=== PATIENT | female | born 1950 | race Two or more races ===

== ENCOUNTER 2025-07-20 10:47 | Emergency (ER) | payer OTHER ==
[~2025-07-20] VITALS: Ht 154.9 cm; Wt 77.1 kg
[2025-07-20 11:26] VITALS: BP 153/79; O2SAT 95
[2025-07-20] MEDS ORDERED: METFORMIN HCL500 M3 (11:29)
[2025-07-20] MEDS ORDERED: HYZAAR 100-12.1 EACH PO (11:30)
[2025-07-20] MEDS ORDERED: DEXAMETHASONE 4 MG TABLET PO ONE (13:15)
[2025-07-20] MEDS ORDERED: ORPHENADRINE CITRATE 30 MG/ML AMPUL IM ONE (13:15)
[2025-07-20] MEDS ORDERED: ORPHENADRINE CITRATE 30 MG/ML AMPUL ONE (14:39)
[2025-07-20] MEDS ORDERED: TYLENOL ARTHRI650 MG PO (16:27)
== END 2025-07-20 17:07 | disposition home or self-care (01) ==
LOC: ER 10:48
DX: S39.82XA Other specified injuries of lower back, initial encounter (principal); W18.2XXA Fall in (into) shower or empty bathtub, initial encounter; Y93.F1 Activity, caregiving, bathing; Y92.012 Bathroom of single-family (private) house as the place of occurrence of the external cause; Z88.6 Allergy status to analgesic agent; S19.89XA Other specified injuries of other specified part of neck, initial encounter; E11.9 Type 2 diabetes mellitus without complications; Z79.84 Long term (current) use of oral hypoglycemic drugs